=== PATIENT | female | born 1990 | race Caucasian/White ===

== ENCOUNTER 2024-03-07 22:54 | Emergency (ER) | payer BC, SELFPAY ==
[2024-03-07 23:01] VITALS: BP 130/82
--- NOTE | 2024-03-07 23:05 | ED.GENMED ---
History of Present Illness
<Ancelmo Shane MD, Resident - Last Filed: 03/08/24 01:19>
General
Chief Complaint: Abdominal Pain
Source: patient
Time Seen by Provider: 03/07/24 23:04
Travel History
Have you traveled to any high risk areas for coronavirus over the past 14 days?: No
Have you had any contact with someone who has COVID-19?: No
Do you have any symptoms of coronavirus? Fever > 100 degrees, chills, cough, shortness of breath, sore throat, loss of taste or smell, muscle aches, or headache?: No
History of Present Illness
History of Present Illness:
Beatriz Lake, 33-year-old female at 10-weeks gestation, has had left upper abdominal and epigastric pain for the past day. The pain is deep and dull, worse after food intake. She has mild nausea at baseline, which has gotten a little worse since
this pain started. She has previously had similar pains prior to her , which she would occasionally take Pepto Bismol for. Also has a sour taste in the back of her throat when the pain occurs. She has also noted darker stools since the
started and she started taking oral iron.
Past History
<Ancelmo Shane MD, Resident - Last Filed: 03/08/24 01:19>
Past History
ED Past Medical History: Other (intermittent diarrhea and constipation)
ED Past Surgical History: Other (wisdom tooth extraction)
Social History
Tobacco: Non-smoker
Alcohol: None
Drug: None
Review of Systems
<Ancelmo Shane MD, Resident - Last Filed: 03/08/24 01:19>
Review of Systems
Allergies reviewed?: Yes
All Other Systems: ROS reviewed and negative except as documented in HPI and ROS
Phy Exam
<Ancelmo Shane MD, Resident - Last Filed: 03/08/24 01:19>
General Physical Exam
General Presentation: well appearing and no apparent distress
General Skin: warm and dry
General Habitus: normal
General Mental: alert
General Hydration: appears well hydrated
ENT Exam
ENT Exam: EOMI, pharynx normal, neck supple and normocephalic
Eye Exam
Eye Exam: PERRL, cornea clear and conjunctiva normal
Cardiovascular Exam
Cardiovascular Exam: regular rate/rhythm, no edema, no murmur and normal peripheral pulses
Pulmonary Exam
Pulmonary Exam: lungs clear, no respiratory distress, no rales, no crackles, no rhonchi, no stridor, no wheezing and no cough
Gastrointestinal Exam
Gastrointestinal Exam: normal bowel sounds, non tender, soft, no organomegaly, no pulsatile mass and non distended
Neurological Exam
Neurological Exam: alert, oriented x3, no motor deficits and speech normal
Musculoskeletal Exam
Musculoskeletal Exam: full ROM and no edema
Skin Exam
Skin Exam: normal color, warm/dry, no rash and no petechia
Psychiatric Exam
Psychiatric Exam: normal mood/affect
Course
<[facility] Fausto Shane MD, Resident - Last Filed: 03/08/24 01:19>
Orders/Labs/Results
Orders:
Orders
03/07/24 23:30
Beta HCG Quantitative Urgent
Comment: ADD ON
Comprehensive Metabolic Panel Urgent
Lipase Urgent
Urinalysis Reflex To Culture Urgent
Date Specimen was Collected: 03/07/24
Time Specimen was Collected: 23:29
03/07/24 23:37
Complete Blood Count/With Diff Urgent
03/07/24 23:43
US Abdomen Complete/Upper Urgent
Comment:
Reason For Exam: upper abd pain
03/08/24 00:04
Add On- LAB Urgent
Tests Added?: hcg quant.
Abnormal Lab Results
03/07/24 03/07/24
23:30 23:37
MPV 11.2 H fL
(7.4-10.4)
Creatinine 0.5 L mg/dL
(0.6-1.0)
Total Bilirubin < 0.1 L mg/dl
(0.2-1.3)
03/07/24 23:37
03/07/24 23:30
Vital Signs
Initial and Last Documented VS:
Initial Vital Signs
Temp Pulse BP Pulse Ox
98.2 F 66 130/82 100
03/07/24 23:01 03/07/24 23:01 03/07/24 23:01 03/07/24 23:01
Last Documented Vital Signs
Temp Pulse BP Pulse Ox
98.2 F 66 130/82 100
03/07/24 23:01 03/07/24 23:01 03/07/24 23:01 03/07/24 23:01
<Thomas Pabon MD - Last Filed: 03/08/24 01:14>
Orders/Labs/Results
Orders:
Orders
03/07/24 23:30
Beta HCG Quantitative Urgent
Comment: ADD ON
Comprehensive Metabolic Panel Urgent
Lipase Urgent
Urinalysis Reflex To Culture Urgent
Date Specimen was Collected: 03/07/24
Time Specimen was Collected: 23:29
03/07/24 23:37
Complete Blood Count/With Diff Urgent
03/07/24 23:43
US Abdomen Complete/Upper Urgent
Comment:
Reason For Exam: upper abd pain
03/08/24 00:04
Add On- LAB Urgent
Tests Added?: hcg quant.
Abnormal Lab Results
03/07/24 03/07/24
23:30 23:37
MPV 11.2 H fL
(7.4-10.4)
Creatinine 0.5 L mg/dL
(0.6-1.0)
Total Bilirubin < 0.1 L mg/dl
(0.2-1.3)
03/07/24 23:37
03/07/24 23:30
Vital Signs
Initial and Last Documented VS:
Initial Vital Signs
Temp Pulse BP Pulse Ox
98.2 F 66 130/82 100
03/07/24 23:01 03/07/24 23:01 03/07/24 23:01 03/07/24 23:01
Last Documented Vital Signs
Temp Pulse BP Pulse Ox
98.2 F 66 130/82 100
03/07/24 23:01 03/07/24 23:01 03/07/24 23:01 03/07/24 23:01
<Ancelmo Shane MD, Resident - Last Filed: 03/08/24 01:19>
*Critical Care Note
Total Time (30-74mins, 75-104mins- exclusive of procedures): Not Applicable
ED Attending Note
<Ancelmo Shane MD, Resident - Last Filed: 03/08/24 01:19>
-
Portions of this chart may have been created with voice recognition software.� Occasional wrong word or��sound alike� substitutions may have occurred due to the inherent limitations of voice recognition software.
<Thomas Pabon MD - Last Filed: 03/08/24 01:14>
ED Attending Note
Patient seen and examined by attending physician: Yes
I performed a history and physical exam of patient and discussed management with resident, I reviewed resident's note and agree with documented findings and plan of care.: Yes
ED Attending Note:
I have seen and evaluated the patient with a [id number] encounter. I have spoken to the resident and involved in the medical history, the physical exam, medical decision making.
Evaluation and management service: agree unless noted differently below.
Results interpretation: agree unless noted differently below.
Focused HPI: 33-year-old female with no reported chronic medical issues who is G1, P0 currently 10 weeks by ultrasound (she had confirmed by ultrasound a week ago) who presents to the emergency room for evaluation of abdominal
pain. Patient reports pain located in the left upper abdomen/epigastric region. She reports dull aching pain which has been consistent for the past few days. She reports pain is worse when she eats, no relieving factors noted. Associated with
nausea but no vomiting. She did have diarrhea over the past few weeks but she says recently has resolved, no constipation, no urinary symptoms. No vaginal bleeding. No leakage of fluids. Denies any fevers or chills. She says she has had the
symptoms outside of and has a history of IBS.
Physical exam: Awake alert not in distress. Vital signs all within acceptable range. Abdomen soft, nondistended, tender to palpation epigastrium and left upper quadrant with no guarding.
Medical Decision Makin-year-old female who is 10 weeks presents for upper abdominal pain worse with meals associated with nausea. Vitals and exam as above. Labs sent off including a CBC and a CMP, lipase which were all normal.
Urinalysis negative for infection. She was sent for an upper abdominal ultrasound which showed normal gallbladder without gallstones or biliary ductal dilation. Some mild fatty liver disease but no acute abnormality in the liver, pancreas, spleen,
kidneys. No free fluid in the abdomen. Suspect likely gastritis. Will start on PPI, can prescribe Diclegis for nausea. Instructed to follow-up with [facility]. She feels comfortable to this plan. We spoke in detail about return precautions and all
questions were answered.
Discharge Plan
Departure
Patient Disposition: Home (Routine Discharge)
Date of Disposition: 03/08/24
Time of Disposition: 01:11
Patient with high blood pressure during this ER visit?: No
Discharge Problem:
Abdominal pain affecting
Instructions: Gastritis (DC)
Prescriptions:
New
pantoprazole 40 mg tablet,delayed release (DR/EC)
40 mg PO DAILY Qty: 30 0RF
doxylamine-pyridoxine (vit B6) [Diclegis] 10-10 mg tablet,delayed release (DR/EC)
1 tab PO BID PRN (Reason: nausea and vomiting) Qty: 20 0RF
Activity Restrictions/Additional Instructions:
Thank you for visiting the Emergency Department at [facility].
1. Please schedule a follow up appointment as directed. Call first thing tomorrow morning to make an appointment.
2. If indicated, please take your medications as instructed and indicated on discharge paperwork.
3. If any of your symptoms do not improve, or persist, or become more severe within 6-12 hours, please return to the emergency department for further care.
4. Please return to the emergency department if you develop a headache, neck pain/stiffness, fever greater than 100.4F, chest pain, shortness of breath, persistent nausea, vomiting, slurred speech, difficulty walking, numbness/tingling, weakness,
signs of infection or any other symptoms that are worrisome to you.
Please call [phone] if you have any questions.
Interventions
Interventions:
*Risk Screen - Suicide Last Done: 03/07/24 22:56
*General Assessment Last Done: 03/07/24 22:56
*Neglect/Abuse Screening Last Done: 03/07/24 22:56
ED- Fall Risk Assessment Last Done: 03/08/24 00:32
PA-Ftkzcw-Wjegefuzei Assessment Last Done: 03/08/24 00:32
Discharge Date and Time
Print Language: CENTRAL AFRICAN
[2024-03-07 23:36] VITALS: BMI 28.8
[2024-03-07 23:47] LABS: Urine Albumin Negative (Neg - Trace); Urine Bilirubin Negative (Negative); Urine Character Clear (Clear); Urine Color Yellow; Urine Glucose Negative (Negative); Urine Ketone Negative (Negative); Urine Leukocyte Negative (Negative); Urine Nitrite Negative (Negative); Urine Occult Blood Negative (Negative); Urine Urobilinogen Negative (Neg - 1+)
[2024-03-07 23:48] LABS: % Basophils 0.3 % (0-2); % Immature Granulocytes 0.3 % (0-0.5); % Lymphocytes 31.9 % (20.5-51.1); % Monocytes 9.1 % (1.7-9.3); % Neutrophils 54.4 % (42.2-75.2); Absolute Eosinophils 0.3 10^3/uL (0-0.7); Absolute Lymphocytes 2.2 10^3/uL (1.2-3.4); Absolute Monocytes 0.6 10^3/uL (0.1-0.6); Absolute Neutrophils 3.8 10^3/uL (1.4-6.5); Hematocrit 37.8 % (37.0-47.0); Hemoglobin 13.1 g/dL (12.0-16.0); Mean Corp Hgb Conc. 34.7 g/dL (33.0-37.0); Mean Corpuscular Hgb 28.9 pg (27.0-31.0); Mean Corpuscular Volume 83.3 fL (81.0-99.0); Mean Platelet Volume 11.2 fL (7.4-10.4); Nucleated Red Blood Cells % 0 %; Platelet Count 249 10^3/uL (130-400); Red Blood Cell Count 4.54 10^6/uL (4.20-5.40); Red Cell Dist. Width 14.1 % (11.5-14.5); White Blood Cell Count 6.9 10^3/uL (4.8-10.8)
[2024-03-07 23:58] LABS: ALT (SGPT) 15 U/L (0-35); AST (SGOT) 22 U/L (14-36); Albumin 4.1 g/dl (3.5-5.0); Alkaline Phosphatase 49 U/L (38-126); Blood Urea Nitrogen 10 mg/dl (7-17); Calcium 9.9 mg/dl (8.4-10.2); Carbon Dioxide 22 mmol/L (22-30); Chloride 104 mmol/L (98-107); Estimated Creatinine Clearance > 125 ml/min; Glucose 96 mg/dl (70-99); Lipase 223 U/L (23-300); Potassium 4.4 mmol/L (3.5-5.1); Sodium 137 mmol/L (135-145); Total Bilirubin < 0.1 mg/dl (0.2-1.3); Total Protein 7.1 g/dl (6.3-8.2); eGFR > 60.00
--- NOTE | 2024-03-08 01:04 | EDRN ---
Dr. Pabon at bedside going over results with patient.
== END 2024-03-08 01:46 | disposition home or self-care (01) ==
LOC: EMR 22:54
PROVIDERS: Student in an Organized Health Care Education/Training Program; EMERGENCY PHYSICIAN Emergency Medicine; FAMILY PHYSICIAN Family Medicine
DX: O26.891 Other specified pregnancy related conditions, first trimester (principal); Z3A.10 10 weeks gestation of pregnancy; R10.10 Upper abdominal pain, unspecified; R10.13 Epigastric pain; R11.0 Nausea; K76.0 Fatty (change of) liver, not elsewhere classified
CPT/HCPCS: 99284; 76700; 80053; 81003; 83690; 84702; 85025